=== PATIENT | male | born 1975 | race Caucasian/White ===

== ENCOUNTER → 2017-02-06 | Outpatient (CLI) | payer BC, OTHER ==
[~2017-02-06] MED LIST: DICL50TA3 PO
--- NOTE | 2017-02-06 15:04 | Diagnostic Imaging Report ---
PROCEDURE: MRI right joint lower extremity without contrast. TECHNIQUE: Multiplanar, multisequence non contrast-enhanced MRI of the right lower extremity was accomplished. INDICATION: Right knee pain. FINDINGS: There is a small suprapatellar effusion. There is increased signal in the popliteus muscle which could be posttraumatic related to a sprain. There is no full-thickness tear. Abutting the lateral aspect of the myotendinous junction of the popliteus, there is a cystic area measuring 1.6 x 1 x 3 cm, which could be sequela of the injury or ganglion cyst. The distal popliteus tendon has normal insertion with increased signal, however, probably related to prior injury. The ACL demonstrates increased signal with fluid intensity mostly proximally suggestive of mucinous degeneration and possible element of old injury. The PCL demonstrates slight increased signal and thickening also suggestive of old injury. There is a complex tear involving the posterior horn of the medial meniscus with a gap in the meniscus material measuring 3 mm in the posterior central aspect. The body of the medial meniscus also demonstrates a nondisplaced tear. The lateral meniscus demonstrates an oblique undersurface tear in the body of the meniscus extending to the anterior horn. The posterior horn appears intact. The lateral collateral ligament complex and the MCL appear intact. There is only mild cartilage thinning in the medial and to a lesser extent in the lateral compartments with minimal cartilage fissuring. Minimal reactive subchondral marrow signal abnormality is seen in the lateral tibial plateau. The extensor mechanism is intact. No Hernández's cyst. IMPRESSION: 1. Popliteus muscle sprain. There is a ganglion cyst abutting the lateral aspect of the popliteus myotendinous junction. 2. Complex tears involving the posterior horn of the medial meniscus. There are also tears in the medial meniscus body segment and in the body and anterior horn of the lateral meniscus. Other findings as above. Dictated by: Dictated on workstation # [id number]
== END ==
LOC: RAD 12:45
PROVIDERS: ATTEND Orthopaedic Surgery
DX: M23.262 Derangement of other lateral meniscus due to old tear or injury, left knee (principal); M23.222 Derangement of posterior horn of medial meniscus due to old tear or injury, left knee; M23.242 Derangement of anterior horn of lateral meniscus due to old tear or injury, left knee; M67.462 Ganglion, left knee
CPT/HCPCS: 73721

== ENCOUNTER 2020-07-24 13:42 | Emergency (ER) | payer BC ==
[~2020-07-24] VITALS: Ht 188 cm; Wt 114.0 kg
[2020-07-24] MEDS ORDERED: ASPIRIN 81 MG CHEW (CHILDREN'S ASA) PO ONE (14:15)
[2020-07-24 14:21] LABS: BASOPHILS # (AUTO) 0.1 10^3/uL (0.0-0.1); BASOPHILS % (AUTO) 1 % (0-10); EOSINOPHILS # (AUTO) 0.1 10^3/uL (0.0-0.3); EOSINOPHILS % (AUTO) 1 % (0-10); HEMATOCRIT 48 % (40-54); HEMOGLOBIN 15.7 g/dL (13.3-17.7); LYMPHOCYTES # (AUTO) 2.2 10^3/uL (1.0-4.0); LYMPHOCYTES % (AUTO) 20 % (12-44); MEAN CORPUSCULAR HEMOGLOBIN 29 pg (25-34); MEAN CORPUSCULAR HGB CONC 32 g/dL (32-36); MEAN CORPUSCULAR VOLUME 90 fL (80-99); MEAN PLATELET VOLUME 11.2 fL (9.0-12.2); MONOCYTES # (AUTO) 0.9 10^3/uL (0.0-1.0); MONOCYTES % (AUTO) 8 % (0-12); NEUTROPHILS # (AUTO) 7.5 10^3/uL (1.8-7.8); NEUTROPHILS % (AUTO) 70 % (42-75); PLATELET COUNT 250 10^3/uL (130-400); WHITE BLOOD COUNT 10.7 10^3/uL (4.3-11.0)
--- NOTE | 2020-07-24 14:26 | Diagnostic Imaging Report ---
INDICATION: Chest pain. Time of exam 2:20 PM No prior studies are available for comparison. Heart size is normal. Lungs are clear apart from a calcified granuloma in the right lung base. There is no effusion or pneumothorax. IMPRESSION: No acute cardiopulmonary process is detected. Dictated by: Dictated on workstation # [id number]
[2020-07-24 14:28] LABS: CHLORIDE 99 MMOL/L (98-107); POTASSIUM 4.1 MMOL/L (3.6-5.0); SODIUM 137 MMOL/L (135-145)
[2020-07-24 14:29] LABS: CALCIUM 9.4 MG/DL (8.5-10.1)
[2020-07-24 14:30] LABS: GLUCOSE 255 MG/DL (70-105); TOTAL PROTEIN 7.3 GM/DL (6.4-8.2)
[2020-07-24 14:31] LABS: CARBON DIOXIDE 27 MMOL/L (21-32); FIBRIN DEGRADATION PRODUCTS 0.38 UG/ML (0.00-0.49); INR 1.1 (0.8-1.4); PROTHROMBIN TIME PATIENT 14.3 SEC (12.2-14.7)
--- NOTE | 2020-07-24 14:31 | Diagnostic Imaging Report ---
Indication: Left shoulder pain started after waking up yesterday. FINDINGS: 3 views of the left shoulder demonstrates no fracture or dislocation. On the oblique view there is a small osteophyte overlying the superior joint space. This is not seen on other views. IMPRESSION: There is osteophyte seen on the oblique view. This is not seen on the other views and the joint space appears normal. Dictated by: Dictated on workstation # [id number]
[2020-07-24 14:32] LABS: BILIRUBIN,TOTAL 0.8 MG/DL (0.1-1.0)
[2020-07-24 14:34] LABS: ALKALINE PHOSPHATASE 64 U/L (40-136); GFR ESTIMATED > 60
[2020-07-24 14:35] LABS: BUN/CREATININE RATIO 8
[2020-07-24 14:37] LABS: ALANINE AMINOTRANSFERASE 89 U/L (0-55); MAGNESIUM 2.1 MG/DL (1.6-2.4)
[2020-07-24] MEDS ORDERED: KETOROLAC 15 MG/ML VIAL IVP ONE (15:15)
[2020-07-24] MEDS ORDERED: ORPHENADRINE 60 MG/2 ML (NORFLEX) AMP (ED ONLY) IM ONE (15:15)
[2020-07-24] MEDS ORDERED: KETOROLAC 30 MG/ML VIAL ONE (15:19)
--- NOTE | 2020-07-24 15:37 | ED General ---
General Chief Complaint: General Problems/Pain Stated Complaint: L SIDE SHOULDER/NECK PAIN AND SWELLING Nursing Triage Note: Patient reports waking up yesterday morning with L shoulder, neck, back, and chest pain that is worse with movement. Patient states that it has got progressively worse. Took ASA to help with the pain but it did not relieve it. Denies SOA, fatigue, nausea Nursing Sepsis Screen: No Definite Risk History of Present Illness Date Seen by Provider: Jul 24, 2020 Time Seen by Provider: 13:50 Initial Comments This is a well-appearing 44-year-old male who presents for left-sided shoulder, chest, neck and back pain that is worse when he attempts to move his left arm or when he takes deep breaths. States the pain began this morning upon awakening and has progressively worsened throughout the day. Reports 10 out of 10 pain with movement, sharp in nature, localized to the left upper chest wall and neck. States he also has intermittent episodes of tingling in his fingers. Denies any strenuous physical activity, trauma, aggravating factors. Denies cough, shortness of breath, diaphoresis, nausea, vomiting, or abdominal pain. Allergies and Home Medications Allergies Coded Allergies: No Known Drug Allergies (Unverified , 07/09/12) Home Medications Cyclobenzaprine HCl 10 Mg Tablet, 10 MG PO TID PRN for PAIN-SEVERE (8-10) Prescribed by: LUIS MIGUEL PINK on 07/24/20 1603 Diclofenac Potassium 50 Mg Tablet, 50 MG PO TID, (Reported) Patient Home Medication List Home Medication List Reviewed: Yes Review of Systems Review of Systems Constitutional: no symptoms reported EENTM: see HPI Respiratory: no symptoms reported Cardiovascular: see HPI Gastrointestinal: no symptoms reported Genitourinary: no symptoms reported Musculoskeletal: see HPI Skin: no symptoms reported Psychiatric/Neurological: No Symptoms Reported Hematologic/Lymphatic: No Symptoms Reported Immunological/Allergic: no symptoms reported Past Gogjvuz-Tnapuf-Iihdqx Hx Patient Social History Alcohol Use: Denies Use Recreational Drug Use: No Recent Foreign Travel: No Contact w/Someone Who Travel: No Recent Infectious Disease Expo: No Past Medical History Surgeries: Yes Orthopedic Respiratory: No Cardiac: No Neurological: No Gastrointestinal: No Musculoskeletal: No Endocrine: No Integumentary: No Blood Disorders: No Physical Exam Vital Signs Vital Signs - First Documented 07/24/20 13:49 Temp 36.5 Pulse 116 Resp 18 B/P (MAP) 173/119 (137) Pulse Ox 98 Capillary Refill : Less Than 3 Seconds Height, Weight, BMI Height: 6'2.00" Weight: 285lbs. oz. 129.606246yd; 32.00 BMI Method: General Appearance: No Apparent Distress, WD/WN HEENT: PERRL/EOMI, Pharynx Normal, Moist Mucous Membranes Neck: Supple, Limited Range of Motion; No Lymphadenopathy (L), No Lymphadenopathy (R); Tender Lateral, Other (mild swelling over left lower neck region, just above the clavicle. Limited range of motion due to guarding from pain. Pain is localized to left lateral side.) Respiratory: Lungs Clear, Normal Breath Sounds, No Accessory Muscle Use, No Respiratory Distress; No Rales; Other (tenderness to left upper chest wall with palpation) Cardiovascular: Regular Rate, Rhythm, No Edema, No Murmur, Normal Peripheral Pulses Gastrointestinal: Normal Bowel Sounds, Non Tender, Soft Back: Normal Inspection, No Vertebral Tenderness Extremity: Normal Inspection, Other (limited range of motion in left shoulder due to pain. Full range of motion to left elbow and wrist. ) Neurologic/Psychiatric: Alert, Oriented x3, No Motor/Sensory Deficits, Normal Mood/Affect Skin: Normal Color, Warm/Dry Progress/Results/Core Measures Suspected Sepsis Recent Fever Within 48 Hours: No Infection Criteria Present: None New/Unexplained Altered Menta: No Sepsis Screen: No Definite Risk SIRS Temperature: Pulse: 116 Respiratory Rate: 18 Laboratory Tests 07/24/20 14:05: White Blood Count 10.7 Blood Pressure 173 /119 Mean: 137 Laboratory Tests 07/24/20 14:05: Creatinine 1.00, INR Comment 1.1, Platelet Count 250, Total Bilirubin 0.8 Results/Orders Lab Results Laboratory Tests Test 07/24/20 14:05 07/24/20 14:55 Range/Units White Blood Count 10.7 4.3-11.0 10^3/uL Red Blood Count 5.41 4.30-5.52 10^6/uL Hemoglobin 15.7 13.3-17.7 g/dL Hematocrit 48 40-54 % Mean Corpuscular Volume 90 80-99 fL Mean Corpuscular Hemoglobin 29 25-34 pg Mean Corpuscular Hemoglobin Concent 32 32-36 g/dL Red Cell Distribution Width 12.0 10.0-14.5 % Platelet Count 250 130-400 10^3/uL Mean Platelet Volume 11.2 9.0-12.2 fL Immature Granulocyte % (Auto) 0 % Neutrophils (%) (Auto) 70 42-75 % Lymphocytes (%) (Auto) 20 12-44 % Monocytes (%) (Auto) 8 0-12 % Eosinophils (%) (Auto) 1 0-10 % Basophils (%) (Auto) 1 0-10 % Neutrophils # (Auto) 7.5 1.8-7.8 10^3/uL Lymphocytes # (Auto) 2.2 1.0-4.0 10^3/uL Monocytes # (Auto) 0.9 0.0-1.0 10^3/uL Eosinophils # (Auto) 0.1 0.0-0.3 10^3/uL Basophils # (Auto) 0.1 0.0-0.1 10^3/uL Immature Granulocyte # (Auto) 0.0 0.0-0.1 10^3/uL Prothrombin Time 14.3 12.2-14.7 SEC INR Comment 1.1 0.8-1.4 Activated Partial Thromboplast Time 31 24-35 SEC D-Dimer 0.38 0.00-0.49 UG/ML Sodium Level 137 135-145 MMOL/L Potassium Level 4.1 3.6-5.0 MMOL/L Chloride Level 99 98-107 MMOL/L Carbon Dioxide Level 27 21-32 MMOL/L Anion Gap 11 5-14 MMOL/L Blood Urea Nitrogen 8 7-18 MG/DL Creatinine 1.00 0.60-1.30 MG/DL Estimat Glomerular Filtration Rate > 60 BUN/Creatinine Ratio 8 Glucose Level 255 H 70-105 MG/DL Calcium Level 9.4 8.5-10.1 MG/DL Corrected Calcium 9.4 8.5-10.1 MG/DL Magnesium Level 2.1 1.6-2.4 MG/DL Total Bilirubin 0.8 0.1-1.0 MG/DL Aspartate Amino Transf (AST/SGOT) 39 H 5-34 U/L Alanine Aminotransferase (ALT/SGPT) 89 H 0-55 U/L Alkaline Phosphatase 64 40-136 U/L Myoglobin 27.7 10.0-92.0 NG/ML Troponin I < 0.028 < 0.028 <0.028 NG/ML Total Protein 7.3 6.4-8.2 GM/DL Albumin 4.0 3.2-4.5 GM/DL My Orders Orders - LUIS MIGUEL PINK APRN Cbc With Automated Diff (07/24/20 14:04) Magnesium (07/24/20 14:04) Chest 1 View, Ap/Pa Only (07/24/20 14:04) Ekg Tracing (07/24/20 14:04) Comprehensive Metabolic Panel (07/24/20 14:04) Myoglobin Serum (07/24/20 14:04) Protime With Inr (07/24/20 14:04) Partial Thromboplastin Time (07/24/20 14:04) Monitor-Rhythm Ecg Trace Only (07/24/20 14:04) Ed Iv/Invasive Line Start (07/24/20 14:04) Aspirin Chewable Tablet (Baby Aspirin Ch (07/24/20 14:15) Shoulder, Left, 3 Views (07/24/20 14:09) Troponin I (07/24/20 14:04) Fibrin Degradation Products (07/24/20 14:04) Ketorolac Injection (Toradol Injection) (07/24/20 15:15) Orphenadrine Inj (Ed Only) (Norflex Inje (07/24/20 15:15) Ketorolac Injection (Toradol Injection) (07/24/20 15:19) Troponin I (07/24/20 15:23) Medications Given in ED Current Medications Medications Dose Ordered Sig/Kaushal Route Start Time Stop Time Status Last Admin Dose Admin Aspirin 324 mg ONCE ONCE PO 07/24/20 14:15 07/24/20 14:16 DC 07/24/20 14:34 324 MG Ketorolac Tromethamine 15 mg ONCE ONCE IVP 07/24/20 15:15 07/24/20 15:16 DC 07/24/20 15:23 15 MG Orphenadrine Citrate 60 mg ONCE ONCE IM 07/24/20 15:15 07/24/20 15:16 DC 07/24/20 15:23 60 MG Vital Signs/I&O 07/24/20 07/24/20 13:49 16:10 Temp 36.5 Pulse 116 88 Resp 18 18 B/P (MAP) 173/119 (137) 141/87 Pulse Ox 98 95 Capillary Refill : Less Than 3 Seconds Blood Pressure Mean: 137 Progress Note : Progress Note Physical exam shows tenderness with palpation to left chest wall, neck and back, which means this is likely muscle skeletal related. EKG and labs reviewed and are reassuring. Initial and repeat troponin negative. He received Toradol and Norflex, which did provide some relief. Discussed use of prednisone. However, with elevated blood pressure today opted to not prescribe steroids at this time. Discussed following up with Dr. Crawford if symptoms persisted and to return to the ER if symptoms changed or worsened. Reviewed discharge plan of care and he is agreeable with plan. ECG Initial ECG Impression Date: Jul 24, 2020 Initial ECG Impression Time: 14:33 Initial ECG Rate: 107 Initial ECG Rhythm: S.Tach Initial ECG Intervals: Normal Initial ECG Impression: Normal Diagnostic Imaging Diagonstic Imaging: Xray Plain Films/CT/US/NM/MRI: other (shoulder) Comments NAME: [facility] [employer] REC#: [id number] PT STATUS: REG ER : 1975 PHYSICIAN: LUIS MIGUEL PINK ACID LOADER ADMIT DATE: 07/24/20/ER Signed Date of Exam:07/24/20 SHOULDER, LEFT, 3 VIEWS Indication: Left shoulder pain started after waking up yesterday. FINDINGS: 3 views of the left shoulder demonstrates no fracture or dislocation. On the oblique view there is a small osteophyte overlying the superior joint space. This is not seen on other views. IMPRESSION: There is osteophyte seen on the oblique view. This is not seen on the other views and the joint space appears normal. Dictated by: Dictated on workstation # [id number] Dict: 07/24/20 1425 Trans: 07/24/20 1434 [facility] [id number] Interpreted by: SUDARSHAN TAY MD Electronically signed by: SUDARSHAN TAY MD 07/24/20 1434 Diagonstic Imaging: Xray Plain Films/CT/US/NM/MRI: chest Comments NAME: [facility] [employer] REC#: [id number] PT STATUS: REG ER : 1975 PHYSICIAN: LUIS MIGUEL PINK ACID LOADER ADMIT DATE: 07/24/20/ER Signed Date of Exam:07/24/20 CHEST 1 VIEW, AP/PA ONLY INDICATION: Chest pain. Time of exam 2:20 PM No prior studies are available for comparison. Heart size is normal. Lungs are clear apart from a calcified granuloma in the right lung base. There is no effusion or pneumothorax. IMPRESSION: No acute cardiopulmonary process is detected. Dictated by: Dictated on workstation # [id number] Dict: 07/24/20 1424 Trans: 07/24/20 143 [facility] [id number] Interpreted by: WILL BECKETT MD Electronically signed by: WILL BECKETT MD 07/24/20 1437 Departure Impression Primary Impression: Acute strain of neck muscle Disposition: 01 HOME, SELF-CARE Condition: Improved Departure-Patient Inst. Decision time for Depature: 16:02 Referrals: RACHEL CRAWFORD DO (PCP/Family) Primary Care Physician Patient Instructions: Muscle Strain (DC) Add. Discharge Instructions: Plan: 1. Discharge home. 2. May take Tylenol or Ibuprofen as needed for pain per package instructions. 3. Use ice 20 minutes at a time every couple hours to reduce pain and swelling. 4. Follow up with your primary care provider if your symptoms persist. 5. May take Flexeril 10mg by mouth three times a day as needed. DO NOT DRIVE WHILE TAKING. 4. Return for any new or concerning symptoms. All discharge instructions reviewed with patient and/or family. Voiced understanding. Scripts Cyclobenzaprine HCl (Cyclobenzaprine HCl) 10 Mg Tablet 10 MG PO TID PRN for PAIN-SEVERE (8-10) for 7 Days, #20 TAB 0 Refills Prov: LUIS MIGUEL PINK ACID LOADER 07/24/20 LUIS MIGUEL PINK ACID LOADER Jul 24, 2020 15:37
[2020-07-24] MEDS ORDERED: CYCL10TA9 PO (16:03)
[2020-07-24 16:10] VITALS: BP 141/87
== END 2020-07-24 16:14 | disposition home or self-care (01) ==
LOC: EDUNIT# 13:42 → ER 13:43
DX: S16.1XXA Strain of muscle, fascia and tendon at neck level, initial encounter (principal); X58.XXXA Exposure to other specified factors, initial encounter
CPT/HCPCS: 36415; 71045; 73030; 80053; 83735; 83874; 84484; 85025; 85379; 85610; 85730; 93041

== ENCOUNTER → 2020-12-21 | Outpatient (CLI) | payer BC ==
[~2020-12-21] MED LIST changes: +CYCL10TA9 PO
--- NOTE | 2020-12-21 12:40 | Diagnostic Imaging Report ---
INDICATION: Neck pain. Numbness and tingling of the arm. COMPARISON: None FINDINGS: Frontal and lateral radiographic views of the cervical spine were obtained. Flexion and extension views in lateral projection are also provided. Cervical spine is seen down to the C7-T1 level on the lateral neutral view. On the lateral neutral view, there is straightening of normal lordotic curvature. There is however no significant pat- or retrolisthesis. There is no evidence of jumped facets. Flexion and extension views show no abnormal translation. Vertebral body heights are maintained. There is no acute fracture. There are mild multilevel degenerative changes greatest at C5-C6 and C6-C7 where there is intervertebral disc height loss with anterior and posterior disc osteophyte complex formations. Surrounding soft tissue structures are unremarkable. Included portions of the lung apices are clear. IMPRESSION: 1. No acute fracture dislocation in the cervical spine. 2. Mild multilevel degenerative changes greatest at C5-C6 and C6-C7. Dictated by: Dictated on workstation # [id number]
== END ==
LOC: RAD 09:42
PROVIDERS: ATTEND Family Medicine
DX: M47.812 Spondylosis without myelopathy or radiculopathy, cervical region (principal)
CPT/HCPCS: 72050